=== PATIENT | male | born 1965 | race Two or more races ===

== ENCOUNTER 2018-06-11 11:00 | Emergency (ER) | payer MEDICAID ==
[~2018-06-11] VITALS: Ht 177.8 cm; Wt 99.8 kg
[2018-06-11 11:18] VITALS: BP_SYST 142
[2018-06-11] MEDS ORDERED: LIDOCAINE 2%, 20 ML MDV INJ ONE (11:30)
[2018-06-11] MEDS ORDERED: DIPH-TET-PERTUS Vaccine 0.5 ML VIAL (ADACEL) I.M. ONE (12:00)
[2018-06-11] MEDS ORDERED: BACITRACIN 1 GM OINT TP ONE ×2 (12:22→18:45)
[2018-06-11 12:23] VITALS: BP_SYST 138
== END 2018-06-11 12:23 | disposition home or self-care (01) ==
LOC: SED 11:00
DX: S61.411A Laceration without foreign body of right hand, initial encounter (principal); W26.0XXA Contact with knife, initial encounter; Y93.89 Activity, other specified; Y92.89 Other specified places as the place of occurrence of the external cause; Y99.8 Other external cause status
CPT/HCPCS: 12001; 99283; J2001; 90715

== ENCOUNTER 2021-05-15 18:14 | Emergency (ER) | payer MEDICAID ==
[~2021-05-15] VITALS: Ht 177.8 cm; Wt 104.3 kg
[2021-05-15 18:18] VITALS: BP_SYST 160
[2021-05-15 18:41] LABS: BILIRUBIN,URINE NEGATIVE (NEGATIVE); BLOOD, URINE 1+ (NEGATIVE); COLOR,URINE YELLOW (YELLOW); GLUCOSE,URINE NEGATIVE (NEGATIVE); KETONES,URINE TRACE (NEGATIVE); LEUKOCYTE ESTERASE ,URINE 1+ (NEGATIVE); NITRITE, URINE NEGATIVE (NEGATIVE); PROTEIN URINE 2+ (NEGATIVE)
[2021-05-15 18:43] LABS: CLARITY/URINE HAZY (CLEAR)
[2021-05-15 18:52] LABS: BACTERIA,URINE MANY /HPF (None Seen); WBC,URINE 20-50 /HPF (0-3)
[2021-05-15 18:53] LABS: CALCIUM OXALATE CRYSTALS,UR None Seen /HPF (None Seen); CALCIUM PHOSPHATE CRYSTALS,UR None Seen /HPF (None Seen); COARSE GRANULAR CASTS,URINE None Seen /LPF (None Seen); FINE GRANULAR CASTS,URINE None Seen /LPF (None Seen); HYALINE CASTS, URINE None Seen /LPF (None Seen); MUCUS,URINE 3+ /LPF (None Seen); OTHER CASTS, URINE None Seen /LPF (None Seen); OTHER CRYSTALS,URINE None Seen /HPF (None Seen); TRICHOMONAS,URINE None Seen /HPF (None Seen); TRIPLE PHOSPHATE CRYSTAL,UR None Seen /HPF (None Seen); URIC ACID CRYSTALS,URINE None Seen /HPF (None Seen); URINE AMORPHOUS PHOSPHATES None Seen /HPF (None Seen); URINE AMORPHOUS URATE None Seen /HPF (None Seen); WAXY CASTS,URINE None Seen /LPF (None Seen); YEAST,URINE None Seen /HPF (None Seen)
[2021-05-15] MEDS ORDERED: cefTRIAXone 1 GM VIAL IM ONE (19:15)
[2021-05-15] MEDS ORDERED: TRAM50TA2 PO (19:25)
[2021-05-15] MEDS ORDERED: IBUP-1969 PO (19:25)
[2021-05-15] MEDS ORDERED: CEPH250C PO (19:25)
[2021-05-15] MEDS ORDERED: AZITHROMYCIN 250 MG TABLET PO ONE (19:30)
[2021-05-15 20:30] VITALS: BP_SYST 148
[2021-05-17 20:06] LABS: CHLAMYDIA TRACHOMATIS NAA Negative (Negative); NEISSERIA GONORRHOEAE NAA Negative (Negative)
== END 2021-05-15 20:30 | disposition home or self-care (01) ==
LOC: SED 18:14
DX: N45.1 Epididymitis (principal); N39.0 Urinary tract infection, site not specified; Z79.899 Other long term (current) drug therapy
CPT/HCPCS: 76870; 81000; 87086; 87491; 87591; 96372; 99284; J0696; Q0144

== ENCOUNTER 2021-07-01 20:25 | Emergency (ER) | payer MEDICAID ==
[~2021-07-01] VITALS: Ht 177.8 cm; Wt 108.9 kg
[~2021-07-01 20:25] MED LIST: CEPH250C PO; IBUP-1969 PO; TRAM50TA2 PO
[2021-07-01 20:30] VITALS: BP_SYST 142
--- NOTE | 2021-07-01 20:30 | NUR ---
Patient triaged and placed in waiting room. VSS and patient appears in no acute distress at this time. Accompanied by , awaiting available bed, and MD notified of need for MSE.
--- NOTE | 2021-07-01 21:04 | NUR ---
PER ADMITTING PT LEFT .
== END 2021-07-01 21:04 | disposition left against medical advice (07) ==
LOC: SED 20:25
DX: R10.9 Unspecified abdominal pain (principal); Z53.21 Procedure and treatment not carried out due to patient leaving prior to being seen by health care provider

== ENCOUNTER 2022-01-27 20:33 | Emergency (ER) | payer MEDICAID ==
[~2022-01-27] VITALS: Ht 175.3 cm; Wt 104.3 kg
[2022-01-27 21:04] VITALS: BP_SYST 168
--- NOTE | 2022-01-27 21:12 | NUR ---
Patient triaged and placed in waiting room. VS checked and patient appears in no acute distress at this time. Accompanied by family, awaiting available bed, and MD notified of need for MSE.
--- NOTE | 2022-01-27 23:56 | NUR ---
Patient to ER bed 03 to gown for evaluation. Side rails up. Report given to SAW Valencia
--- NOTE | 2022-01-28 01:09 | NUR ---
TOBY Vaughn at bedside examining patient.
[2022-01-28] MEDS ORDERED: OXYCODONE/ACETAMINOPHEN 5-325 TABLET PO ONE (01:15)
[2022-01-28] MEDS ORDERED: IBUP-1969 PO (01:22)
[2022-01-28] MEDS ORDERED: HYDR-3917 PO (01:22)
--- NOTE | 2022-01-28 01:31 | NUR ---
VOLAR splint applied to LEFT ARM. RADIAL pulse noted. Capillary refill <3 seconds. Patient has ability to move non-splinted digits. Has sensation present to affected site. Skin color within normal limits. Applied for pain management control.
[2022-01-28 05:41] VITALS: BP_SYST 143
== END 2022-01-28 05:00 | disposition home or self-care (01) ==
LOC: SED 20:33
DX: S22.32XA Fracture of one rib, left side, initial encounter for closed fracture (principal); S52.612A Displaced fracture of left ulna styloid process, initial encounter for closed fracture; S40.012A Contusion of left shoulder, initial encounter; S50.12XA Contusion of left forearm, initial encounter; Z79.899 Other long term (current) drug therapy; V98.8XXA Other specified transport accidents, initial encounter; Y93.89 Activity, other specified; Y92.89 Other specified places as the place of occurrence of the external cause; Y99.8 Other external cause status
CPT/HCPCS: 71045; 71100; 99284

== ENCOUNTER 2022-05-17 14:21 | Emergency (ER) | payer MEDICAID ==
[~2022-05-17] VITALS: Ht 177.8 cm; Wt 99.8 kg
[~2022-05-17 14:21] MED LIST changes: +HYDR-3917 PO
[2022-05-17 14:25] VITALS: BP_SYST 128
--- NOTE | 2022-05-17 14:45 | NUR ---
Patient to ER bed 2 to gown for evaluation. Side rails up. Report given to SAW CALDWELL.
[2022-05-17] MEDS ORDERED: KETOROLAC TROMETHAMINE 60 MG/2 ML VIAL IM ONE (15:00)
[2022-05-17 15:02] LABS: BILIRUBIN,URINE NEGATIVE (NEGATIVE); BLOOD, URINE 3+ (NEGATIVE); COLOR,URINE YELLOW (YELLOW); GLUCOSE,URINE NEGATIVE (NEGATIVE); KETONES,URINE NEGATIVE (NEGATIVE); LEUKOCYTE ESTERASE ,URINE NEGATIVE (NEGATIVE); NITRITE, URINE NEGATIVE (NEGATIVE); PROTEIN URINE 1+ (NEGATIVE); UROBILINOGEN,URINE 0.2 (0.2-1.0)
--- NOTE | 2022-05-17 15:04 | NUR ---
Patient transported to radiology via AMBULATION, accompanied by STAFF.
[2022-05-17 15:07] LABS: CLARITY/URINE HAZY (CLEAR)
[2022-05-17 15:08] LABS: BACTERIA,URINE FEW /HPF (None Seen); MUCUS,URINE 1+ /LPF (None Seen); WBC,URINE 0-3 /HPF (0-3)
[2022-05-17 15:39] LABS: BASOPHILS % (AUTO) 0.5 % (0.0-2.0); EOSINOPHILS # (AUTO) 0.2 K/uL (0.0-0.4); EOSINOPHILS % (AUTO) 2.9 % (0.0-4.0); HEMATOCRIT 40.2 % (36-54); HEMOGLOBIN 13.6 g/dL (14.0-18.0); LYMPHOCYTES # (AUTO) 1.4 K/uL (1.0-5.5); MEAN CORPUSCULAR HEMOGLOBIN 32 pg (27-31); MEAN CORPUSCULAR HGB CONC 34 % (32-36); MEAN CORPUSCULAR VOLUME 95 fL (79.0-98.0); MONOCYTES # (AUTO) 0.5 K/uL (0.0-1.0); MONOCYTES % (AUTO) 9.8 % (1.7-9.3); NEUTROPHILS # (AUTO) 3.4 K/uL (1.8-7.7); NEUTROPHILS % (AUTO) 61.8 % (40.0-70.0); PLATELET COUNT (AUTO) 184 K/uL (130-430); RED BLOOD CELL COUNT(AUTO) 4.25 MIL/uL (4.2-6.2); RED CELL DISTRIBUTION WIDTH 13.4 % (9.0-15.0); WHITE BLOOD COUNT (AUTO) 5.5 K/uL (4.8-10.8)
[2022-05-17 15:49] LABS: ANION GAP 5 (5-15); CALCIUM 8.4 mg/dL (8.4-11.0); CHLORIDE 104 mmol/L (98-107); CREATININE 1.01 mg/dL (0.55-1.30); GLUCOSE 125 mg/dL (70-99); POTASSIUM 3.4 mmol/L (3.5-5.1); SODIUM SERUM 139 mmol/L (136-145); UREA NITROGEN, BLOOD 14 mg/dL (8-21)
[2022-05-17 15:50] LABS: GFR AFRICAN AMERICAN 99 mL/min (>90)
[2022-05-17 15:54] LABS: ALANINE AMINOTRANSFERASE 33 U/L (12-78); ALBUMIN 3.6 g/dL (3.4-4.8); AMYLASE 33 U/L (0-100); ASPARTATE AMINOTRANSFERASE 27 U/L (10-37); LIPASE 72 U/L (73-393); TOTAL BILIRUBIN 0.5 mg/dL (0.0-1.0)
[2022-05-17 15:55] LABS: C-REACTIVE PROTEIN QUANT < 0.2 mg/dL (0-0.5)
--- NOTE | 2022-05-17 16:30 | NUR ---
MD SPOKE WITH PT REGARDING 9 MM KIDNEY STONE. RN PREPARE FOR DC HOME
[2022-05-17] MEDS ORDERED: TRAM50TA2 PO (16:31)
[2022-05-17] MEDS ORDERED: IBUP-1971 PO (16:31)
[2022-05-17 16:37] VITALS: BP_SYST 132
--- NOTE | 2022-05-17 16:42 | NUR ---
Patient given written and verbal discharge instructions and verbalizes understanding. ER MD discussed with patient the results and treatment provided. Patient in stable condition. ID arm band removed. Rx of TRAMADOL given. Patient educated on pain management and to follow up with PMD. Pain Scale 0/10. Opportunity for questions provided and answered. Medication side effect fact sheet provided.
== END 2022-05-17 16:37 | disposition home or self-care (01) ==
LOC: SED 14:21
DX: N23 Unspecified renal colic (principal); R11.0 Nausea; Z79.899 Other long term (current) drug therapy
CPT/HCPCS: 99284; 74176; 80053; 81000; 82150; 83690; 85025; 86140; 36415; 76376; 96372; 83605; J1885

== ENCOUNTER 2022-07-17 11:21 | Emergency (ER) | payer MEDICAID ==
[~2022-07-17] VITALS: Ht 160 cm; Wt 52.2 kg
[~2022-07-17 11:21] MED LIST changes: +IBUP-1971 PO
[2022-07-17 11:23] VITALS: BP_SYST 144
--- NOTE | 2022-07-17 11:30 | NUR ---
Patient to ER bed 8 to gown for evaluation. Side rails up. Report given to Darien SPRING.
--- NOTE | 2022-07-17 11:53 | NUR ---
First contact. Pt over the phone states he has right sided pain to the scrotum. Pain is 10/10.
--- NOTE | 2022-07-17 11:55 | NUR ---
ER at bedside examining patient.
[2022-07-17] MEDS ORDERED: MORPHINE SULFATE 10 MG/ML VIAL IM ONE (12:00)
[2022-07-17] MEDS ORDERED: ONDANSETRON 4 MG ODT TAB PO ONE (12:00)
--- NOTE | 2022-07-17 12:02 | NUR ---
TAKEN TO RADIOLOGY VIA WHEELCHAIR
--- NOTE | 2022-07-17 12:43 | NUR ---
RETURNED FROM RADIOLOGY AND BACK TO BED #8
[2022-07-17] MEDS ORDERED: IBUP-1971 PO (14:37)
[2022-07-17 15:34] VITALS: BP_SYST 141
--- NOTE | 2022-07-17 15:34 | NUR ---
Patient given written and verbal discharge instructions and verbalizes understanding. ER MD discussed with patient the results and treatment provided. Patient in stable condition. ID arm band removed. IV catheter removed intact and dressing applied, no active bleeding. Rx of Ibuprofen given. Patient educated on pain management and to follow up with PMD. Pain Scale 0/10. Opportunity for questions provided and answered. Medication side effect fact sheet provided.
[2022-07-17 16:04] LABS: BILIRUBIN,URINE NEGATIVE (NEGATIVE); BLOOD, URINE 2+ (NEGATIVE); CLARITY/URINE CLEAR (CLEAR); COLOR,URINE YELLOW (YELLOW); GLUCOSE,URINE NEGATIVE (NEGATIVE); KETONES,URINE NEGATIVE (NEGATIVE); LEUKOCYTE ESTERASE ,URINE NEGATIVE (NEGATIVE); NITRITE, URINE NEGATIVE (NEGATIVE); PH,URINE 7.5 (5.0-8.0); PROTEIN URINE NEGATIVE (NEGATIVE); UROBILINOGEN,URINE 0.2 (0.2-1.0)
[2022-07-17 16:44] LABS: BACTERIA,URINE None Seen /HPF (None Seen); MUCUS,URINE 1+ /LPF (None Seen); RBC,URINE 20-50 /HPF (0-3); URINE AMORPHOUS URATE 1+ /HPF (None Seen); WBC,URINE NONE SEEN /HPF (0-3)
== END 2022-07-17 15:34 | disposition home or self-care (01) ==
LOC: SED 11:21
DX: N50.811 Right testicular pain (principal); Z79.899 Other long term (current) drug therapy
CPT/HCPCS: 99284; 96374; 81000; 76870; Q0162; J2270

== ENCOUNTER 2022-11-14 09:53 | Inpatient (IN) | payer OTHER, MEDICAID ==
[~2022-11-14] VITALS: Ht 175.3 cm; Wt 76.2 kg
[2022-11-14 10:33] VITALS: BP_SYST 142
[2022-11-14] MEDS ORDERED: NACL 0.9% 1,000 ML IV ONE (10:45)
[2022-11-14] MEDS ORDERED: KETOROLAC TROMETHAMINE 30 MG VIAL IVP ONE (10:45)
[2022-11-14 11:46] LABS: BASOPHILS % (AUTO) 0.6 % (0.0-2.0); EOSINOPHILS # (AUTO) 0.2 K/uL (0.0-0.4); EOSINOPHILS % (AUTO) 3.8 % (0.0-4.0); HEMATOCRIT 46.6 % (36-54); HEMOGLOBIN 15.6 g/dL (14.0-18.0); LYMPHOCYTES # (AUTO) 1.5 K/uL (1.0-5.5); LYMPHOCYTES % (AUTO) 24.2 % (20.5-51.5); MEAN CORPUSCULAR HEMOGLOBIN 32 pg (27-31); MEAN CORPUSCULAR HGB CONC 33 % (32-36); MEAN CORPUSCULAR VOLUME 96 fL (79.0-98.0); MONOCYTES # (AUTO) 0.4 K/uL (0.0-1.0); MONOCYTES % (AUTO) 6.8 % (1.7-9.3); NEUTROPHILS % (AUTO) 64.6 % (40.0-70.0); PLATELET COUNT (AUTO) 250 K/uL (130-430); RED BLOOD CELL COUNT(AUTO) 4.87 MIL/uL (4.2-6.2); RED CELL DISTRIBUTION WIDTH 13.6 % (9.0-15.0); WHITE BLOOD COUNT (AUTO) 6.3 K/uL (4.8-10.8)
[2022-11-14 11:51] LABS: BILIRUBIN,URINE NEGATIVE (NEGATIVE); BLOOD, URINE 2+ (NEGATIVE); CLARITY/URINE CLEAR (CLEAR); COLOR,URINE YELLOW (YELLOW); GLUCOSE,URINE NEGATIVE (NEGATIVE); KETONES,URINE NEGATIVE (NEGATIVE); LEUKOCYTE ESTERASE ,URINE NEGATIVE (NEGATIVE); NITRITE, URINE NEGATIVE (NEGATIVE); PROTEIN URINE 1+ (NEGATIVE); UROBILINOGEN,URINE 0.2 (0.2-1.0)
[2022-11-14 11:58] LABS: CREATININE 0.78 mg/dL (0.55-1.30)
[2022-11-14 12:17] LABS: ALBUMIN 4.5 g/dL (3.4-4.8); TOTAL BILIRUBIN 0.7 mg/dL (0.0-1.0)
[2022-11-14] MEDS ORDERED: cefTRIAXone 1 GM IVPB PREMIX 50 ML IV ONE (12:30)
[2022-11-14 12:32] LABS: BACTERIA,URINE None Seen /HPF (None Seen); WBC,URINE 0-3 /HPF (0-3)
[2022-11-14 12:33] LABS: MUCUS,URINE 1+ /LPF (None Seen)
[2022-11-14] MEDS ORDERED: MORPHINE 4 MG INJ. 4 MG/ML VIAL IVP ONE (13:45)
[2022-11-14] MEDS ORDERED: D5/0.45 NS 1,000 ML IV ONE (14:00)
[2022-11-14] MEDS ORDERED: TAMS-11 PO (19:31)
[2022-11-15] VITALS: BP_SYST 141
[2022-11-15 04:00] VITALS: BP_SYST 139
[2022-11-15] MEDS ORDERED: IBUPROFEN 600 MG TABLET PO PRN (11:30)
[2022-11-15] MEDS ORDERED: TAMS-11 PO (12:55)
[2022-11-15] MEDS ORDERED: IBUP-1971 PO (12:55)
[2022-11-15] MEDS ORDERED: HYDR-3917 PO (12:55)
[2022-11-15 14:15] VITALS: BP_SYST 134
[2022-11-15 14:32] VITALS: BP_SYST 137
== END 2022-11-15 15:00 | disposition home or self-care (01) | DRG 690 ==
LOC: SED 09:53 → SMU 13:52
PROVIDERS: ADMIT Preventive Medicine Preventive Medicine/Occupational Environmental Medicine; ATTEND Preventive Medicine Preventive Medicine/Occupational Environmental Medicine
DX: N10 Acute pyelonephritis (principal); K80.20 Calculus of gallbladder without cholecystitis without obstruction; N13.6 Pyonephrosis; N20.0 Calculus of kidney; K57.30 Diverticulosis of large intestine without perforation or abscess without bleeding; K40.90 Unilateral inguinal hernia, without obstruction or gangrene, not specified as recurrent; R31.9 Hematuria, unspecified; Z20.822 Contact with and (suspected) exposure to COVID-19; Z87.442 Personal history of urinary calculi; Z79.1 Long term (current) use of non-steroidal anti-inflammatories (NSAID); Z79.891 Long term (current) use of opiate analgesic; Z79.899 Other long term (current) drug therapy
CPT/HCPCS: 36415; 76376; 80053; 81000; 83605; 85025; 87040; 99285; J0696; J1885; J2270; J7030

== ENCOUNTER 2022-11-18 19:20 | Emergency (ER) | payer OTHER, MEDICAID ==
[~2022-11-18] VITALS: Ht 177.8 cm; Wt 104.3 kg
[~2022-11-18 19:20] MED LIST changes: -IBUP-1969 PO; +TAMS-11 PO; -TRAM50TA2 PO
--- NOTE | 2022-11-18 20:01 | NUR ---
Placed in room HW1. Placed on call taker. Pt to gown for exam. Side rails up. Report given to SAW Henriquez.
--- NOTE | 2022-11-18 20:01 | NUR ---
Patient triaged and placed in waiting room. VSS and patient appears in no acute distress at this time. Accompanied by , awaiting available bed, and MD Reynolds notified of need for MSE.
--- NOTE | 2022-11-18 20:10 | NUR ---
PATIENT BROUGHT IN COMPLAINING OF SEVERE PAIN TO RIGHT TESTICLE STARTING AT 1400 TODAY AFTER BEING DISCHARGED FROM [facility] FOR A LITHOTRIPSY. PAIN 08/18.
--- NOTE | 2022-11-18 20:14 | NUR ---
# 20 gauge angiocath placed to LT HAND. Use of asceptic technique. Opsite placed over site. Blood return noted. Blood for lab drawn from site. Flushed with 10 cc of normal saline. No evidence of infiltration noted. Patient tolerated well.
[2022-11-18] MEDS ORDERED: ONDANSETRON HCL 4 MG/2 ML VIAL IVP ONE (20:15)
[2022-11-18] MEDS ORDERED: NACL 0.9% 1,000 ML IV ONE (20:15)
[2022-11-18] MEDS ORDERED: KETOROLAC TROMETHAMINE 30 MG VIAL IVP ONE (20:15)
[2022-11-18] MEDS ORDERED: MORPHINE 4 MG INJ. 4 MG/ML VIAL IVP ONE ×2 (20:15→22:30)
--- NOTE | 2022-11-18 20:15 | NUR ---
ER at bedside examining patient.
[2022-11-18 20:25] LABS: BILIRUBIN,URINE NEGATIVE (NEGATIVE); BLOOD, URINE 3+ (NEGATIVE); CLARITY/URINE CLOUDY (CLEAR); COLOR,URINE YELLOW (YELLOW); GLUCOSE,URINE NEGATIVE (NEGATIVE); KETONES,URINE NEGATIVE (NEGATIVE); LEUKOCYTE ESTERASE ,URINE NEGATIVE (NEGATIVE); NITRITE, URINE NEGATIVE (NEGATIVE); PROTEIN URINE 1+ (NEGATIVE); UROBILINOGEN,URINE 0.2 (0.2-1.0)
[2022-11-18 20:25] LABS: BASOPHILS % (AUTO) 0.1 % (0.0-2.0); HEMATOCRIT 46.4 % (36-54); HEMOGLOBIN 15.5 g/dL (14.0-18.0); LYMPHOCYTES # (AUTO) 0.7 K/uL (1.0-5.5); LYMPHOCYTES % (AUTO) 5.4 % (20.5-51.5); MEAN CORPUSCULAR HEMOGLOBIN 32 pg (27-31); MEAN CORPUSCULAR HGB CONC 33 % (32-36); MEAN CORPUSCULAR VOLUME 96 fL (79.0-98.0); MONOCYTES # (AUTO) 0.2 K/uL (0.0-1.0); MONOCYTES % (AUTO) 1.9 % (1.7-9.3); NEUTROPHILS # (AUTO) 11.7 K/uL (1.8-7.7); NEUTROPHILS % (AUTO) 92.6 % (40.0-70.0); PLATELET COUNT (AUTO) 251 K/uL (130-430); RED BLOOD CELL COUNT(AUTO) 4.82 MIL/uL (4.2-6.2); RED CELL DISTRIBUTION WIDTH 13.2 % (9.0-15.0); WHITE BLOOD COUNT (AUTO) 12.6 K/uL (4.8-10.8)
[2022-11-18 20:34] LABS: CALCIUM 8.9 mg/dL (8.4-11.0); CREATININE 1.27 mg/dL (0.55-1.30)
[2022-11-18 20:46] LABS: ALBUMIN 4.5 g/dL (3.4-4.8); TOTAL BILIRUBIN 0.4 mg/dL (0.0-1.0)
[2022-11-18 22:15] LABS: BACTERIA,URINE FEW /HPF (None Seen); MUCUS,URINE 2+ /LPF (None Seen); RBC,URINE >100 /HPF (0-3)
[2022-11-18 22:50] VITALS: BP_SYST 132
--- NOTE | 2022-11-18 22:50 | NUR ---
Patient given written and verbal discharge instructions and verbalizes understanding. ER MD discussed with patient the results and treatment provided. Patient in stable condition. ID arm band removed. IV catheter removed intact and dressing applied, no active bleeding. NO RX GIVEN. Patient educated on pain management and to follow up with PMD. Pain Scale 0/10 Opportunity for questions provided and answered.
== END 2022-11-18 22:50 | disposition home or self-care (01) ==
LOC: SED 19:20
DX: N20.0 Calculus of kidney (principal); N50.811 Right testicular pain; R10.9 Unspecified abdominal pain; R11.0 Nausea; Z87.442 Personal history of urinary calculi; Z79.899 Other long term (current) drug therapy
CPT/HCPCS: 99285; 74176; 96374; 96375; 96361; 80053; 81000; 85025; 36415; 76376; 96376; J1885; J2405; J2270; J7030

== ENCOUNTER 2024-01-27 15:50 | Inpatient (IN) | payer MEDICARE, MEDICAID ==
[~2024-01-27] VITALS: Ht 180.3 cm; Wt 108.9 kg
[2024-01-27 15:50] VITALS: BP_SYST 114; PULSE 109; RESP 18; TEMP 97.3; O2SAT 96
[2024-01-27] MEDS ORDERED: HYDR-3927 PO (18:27)
[2024-01-27] MEDS ORDERED: IBUP-1971 PO (18:30)
[2024-01-27] MEDS ORDERED: CYCL10TA24 PO (18:30)
[2024-01-27] MEDS: KETOROLAC TROMETHAMINE 60 MG/2 ML VIAL IM ONE (18:40)
[2024-01-27] MEDS: METHYLPREDNISOLONE SOD SUCC 40 MG/ML VIAL INJ ONE (18:42)
[2024-01-27] MEDS: ONDANSETRON 4 MG ODT TAB PO ONE (18:43)
[2024-01-27] MEDS: MORPHINE SULFATE 10 MG/ML VIAL IM ONE (18:45)
[2024-01-27] MEDS ORDERED: HYDROmorphone 1 MG/ML INJ. CARTRIDGE IVP PRN (20:15)
[2024-01-27 21:22] LABS: BASOPHILS % (AUTO) 0.3 % (0.0-2.0); EOSINOPHILS % (AUTO) 0.1 % (0.0-4.0); HEMOGLOBIN 15.1 g/dL (14.0-18.0); LYMPHOCYTES % (AUTO) 8.5 % (20.5-51.5); MEAN CORPUSCULAR HEMOGLOBIN 33 pg (27-31); MEAN CORPUSCULAR HGB CONC 34 % (32-36); MEAN CORPUSCULAR VOLUME 97 fL (79.0-98.0); MONOCYTES # (AUTO) 0.5 K/uL (0.0-1.0); MONOCYTES % (AUTO) 4.4 % (1.7-9.3); NEUTROPHILS # (AUTO) 10.6 K/uL (1.8-7.7); NEUTROPHILS % (AUTO) 86.7 % (40.0-70.0); PLATELET COUNT (AUTO) 276 K/uL (130-430); RED BLOOD CELL COUNT(AUTO) 4.54 MIL/uL (4.2-6.2); RED CELL DISTRIBUTION WIDTH 14.5 % (9.0-15.0); WHITE BLOOD COUNT (AUTO) 12.3 K/uL (4.8-10.8)
[2024-01-27 21:39] LABS: ALBUMIN 3.8 g/dL (3.4-4.8); CALCIUM 8.4 mg/dL (8.4-11.0); CREATININE 1.05 mg/dL (0.55-1.30); POTASSIUM 4.5 mmol/L (3.5-5.1); TOTAL BILIRUBIN 0.4 mg/dL (0.0-1.0); TOTAL PROTEIN, SERUM 7.5 g/dL (6.4-8.3)
[2024-01-27 23:15] VITALS: BP_SYST 140; PULSE 85; RESP 20; TEMP 98; O2SAT 99
[2024-01-28 04:00] VITALS: BP_SYST 139; PULSE 87; RESP 20; TEMP 98.3; O2SAT 99
[2024-01-28 08:00] VITALS: O2SAT 99
[2024-01-28 08:08] VITALS: BP_SYST 133; PULSE 71; RESP 18; TEMP 98; O2SAT 100
[2024-01-28] MEDS: HYDROcodone/ACETAMIN 10-325 MG TAB PO PRN (09:25)
[2024-01-28] MEDS ORDERED: NALOXONE HCL 0.4 MG/ML AMP (NARCAN) IVP PRN ×2 (09:45)
[2024-01-28] MEDS ORDERED: CYCLOBENZAPRINE HCL 10 MG TABLET (FLEXERIL) PO SCH (09:45)
[2024-01-28] MEDS ORDERED: HYDROcodone/ACETAMIN 10-325 MG TAB PO PRN (09:45)
[2024-01-28] MEDS: CYCLOBENZAPRINE HCL 10 MG TABLET (FLEXERIL) PO ONE (09:45)
[2024-01-28] MEDS ORDERED: HYDROcodone/ACETAMIN 5-325 MG TAB (NORCO/ VICODIN) PO PRN (09:45)
[2024-01-28] MEDS: TAMSULOSIN HCL 0.4 MG CAP PO SCH (13:58)
[2024-01-28] MEDS: CYCLOBENZAPRINE HCL 10 MG TABLET (FLEXERIL) PO SCH (14:10)
[2024-01-28] MEDS ORDERED: IBUP800T54 PO (14:21)
[2024-01-28] MEDS ORDERED: CYCL10TA24 PO (14:21)
[2024-01-28] MEDS ORDERED: HYDR-3917 PO (14:21)
[2024-01-28] MEDS ORDERED: LISI30TA36 PO (14:23)
[2024-01-28 20:00] VITALS: BP_SYST 138; PULSE 79; RESP 20; TEMP 98; O2SAT 98; O2SAT 99
[2024-01-29] VITALS: BP_SYST 141; PULSE 80; RESP 18; TEMP 97.7; O2SAT 97
[2024-01-29 04:00] VITALS: BP_SYST 137; PULSE 78; RESP 20; TEMP 98; O2SAT 99
[2024-01-29 07:05] LABS: BASOPHILS % (AUTO) 0.1 % (0.0-2.0); EOSINOPHILS # (AUTO) 0.1 K/uL (0.0-0.4); EOSINOPHILS % (AUTO) 0.6 % (0.0-4.0); HEMATOCRIT 43.7 % (36-54); HEMOGLOBIN 15.2 g/dL (14.0-18.0); LYMPHOCYTES # (AUTO) 2.8 K/uL (1.0-5.5); LYMPHOCYTES % (AUTO) 25.4 % (20.5-51.5); MEAN CORPUSCULAR HEMOGLOBIN 34 pg (27-31); MEAN CORPUSCULAR HGB CONC 35 % (32-36); MEAN CORPUSCULAR VOLUME 98 fL (79.0-98.0); MONOCYTES # (AUTO) 0.8 K/uL (0.0-1.0); MONOCYTES % (AUTO) 7.3 % (1.7-9.3); NEUTROPHILS # (AUTO) 7.3 K/uL (1.8-7.7); NEUTROPHILS % (AUTO) 66.6 % (40.0-70.0); PLATELET COUNT (AUTO) 252 K/uL (130-430); RED BLOOD CELL COUNT(AUTO) 4.48 MIL/uL (4.2-6.2); RED CELL DISTRIBUTION WIDTH 14.6 % (9.0-15.0); WHITE BLOOD COUNT (AUTO) 10.9 K/uL (4.8-10.8)
[2024-01-29 07:11] LABS: CALCIUM 8.4 mg/dL (8.4-11.0); CREATININE 0.87 mg/dL (0.55-1.30); POTASSIUM 3.9 mmol/L (3.5-5.1)
[2024-01-29 07:45] VITALS: BP_SYST 131; PULSE 67; RESP 18; TEMP 96.2; O2SAT 97
[2024-01-29] MEDS: TAMSULOSIN HCL 0.4 MG CAP PO SCH (08:15)
[2024-01-29 11:15] VITALS: BP_SYST 131; PULSE 67; RESP 18; TEMP 96.2; O2SAT 96
[2024-01-29] MEDS ORDERED: MELO-89 PO (11:47)
[2024-01-29] MEDS ORDERED: HYDR-3917 PO (11:47)
[2024-01-29] MEDS ORDERED: DEC1 PO (12:30)
[2024-01-29 12:59] VITALS: BP_SYST 136; PULSE 81; RESP 16; TEMP 96.9; O2SAT 96
== END 2024-01-29 14:25 | disposition home health service (06) | DRG 552 ==
LOC: SED 15:50 → SMU 20:10
PROVIDERS: ADMIT Specialist; ATTEND Specialist
DX: M54.9 Dorsalgia, unspecified (principal); Z79.891 Long term (current) use of opiate analgesic; Z79.899 Other long term (current) drug therapy; Z79.1 Long term (current) use of non-steroidal anti-inflammatories (NSAID)
CPT/HCPCS: 36415; 72131; 72202-TC; 80048; 80053; 85025; 96372; 97110-GP; 97116-GP; 97530-GP; 99285; J1030; J1885; J2270; Q0162

== ENCOUNTER 2024-07-08 10:23 | Inpatient (IN) | payer OTHER, MEDICAID ==
[2024-07-08] VITALS (10 sets, daily range): BP systolic 122–162; PULSE 84–147; RESP 16–25; TEMP 97.1–98.2; O2SAT 95–98
[~2024-07-08] VITALS: Ht 177.8 cm; Wt 104.3 kg
[~2024-07-08 10:23] MED LIST changes: -CEPH250C PO; +CYCL10TA24 PO; +DEC1 PO; -IBUP-1971 PO; +LISI30TA36 PO; +MELO-89 PO; -TAMS-11 PO
[2024-07-08] MEDS: ONDANSETRON HCL 4 MG/2 ML VIAL IVP ONE (11:14)
[2024-07-08] MEDS: MORPHINE 4 MG INJ. 4 MG/ML VIAL IVP ONE (11:14)
[2024-07-08] MEDS: dilTIAZem HCL IVP 5 MG/ML VIAL IVP ONE ×2 (11:15→13:41)
[2024-07-08] MEDS: ASPIRIN 81 MG TAB.CHEW PO ONE (11:15)
[2024-07-08 11:16] LABS: BASOPHILS % (AUTO) 0.4 % (0.0-2.0); EOSINOPHILS # (AUTO) 0.1 K/uL (0.0-0.4); HEMATOCRIT 44.9 % (36-54); HEMOGLOBIN 14.9 g/dL (14.0-18.0); LYMPHOCYTES # (AUTO) 1.9 K/uL (1.0-5.5); LYMPHOCYTES % (AUTO) 19.6 % (20.5-51.5); MEAN CORPUSCULAR HEMOGLOBIN 33 pg (27-31); MEAN CORPUSCULAR HGB CONC 33 % (32-36); MEAN CORPUSCULAR VOLUME 101 fL (79.0-98.0); MONOCYTES # (AUTO) 1.2 K/uL (0.0-1.0); MONOCYTES % (AUTO) 12.8 % (1.7-9.3); NEUTROPHILS # (AUTO) 6.4 K/uL (1.8-7.7); NEUTROPHILS % (AUTO) 66.2 % (40.0-70.0); PLATELET COUNT (AUTO) 261 K/uL (130-430); RED BLOOD CELL COUNT(AUTO) 4.46 MIL/uL (4.2-6.2); RED CELL DISTRIBUTION WIDTH 15.5 % (9.0-15.0); WHITE BLOOD COUNT (AUTO) 9.7 K/uL (4.8-10.8)
[2024-07-08 11:51] LABS: ANION GAP 12 (5-15); CALCIUM 8.8 mg/dL (8.4-11.0); CARBON DIOXIDE 24 mmol/L (23-29); CHLORIDE 102 mmol/L (98-107); CREATININE 0.95 mg/dL (0.55-1.30); GFR AFRICAN AMERICAN 105 mL/min (>90); GLUCOSE 101 mg/dL (74-106); POTASSIUM 4.4 mmol/L (3.5-5.1); SODIUM SERUM 138 mmol/L (136-145); UREA NITROGEN, BLOOD 12 mg/dL (8-21)
[2024-07-08 11:54] LABS: GFR NON AFRICAN-AMERICAN 87 mL/min (>90)
[2024-07-08 12:11] LABS: BARBITURATE, URINE NEGATIVE (NEG <=200); BENZODIAZEPINE, URINE NEGATIVE (NEG <=150); CANNABINOID, URINE NEGATIVE (NEG <=50); COCAINE, URINE NEGATIVE (NEG <=150); METHAMPHETAMINES SCREEN,URINE NEGATIVE (NEG <=500); OPIATE, URINE NEGATIVE (NEG <=100); PHENCYCLIDINE SCREEN,URINE NEGATIVE (NEG <=25); UR TRICYCLIC ANTIDEPRESSANTS NEGATIVE (NEG <=300); URINE AMPHETAMINE NEGATIVE (NEG <=500); URINE METHADONE NEGATIVE (NEG <=200); URINE OXYCODONE SCREEN NEGATIVE (NEG <=100)
[2024-07-08] MEDS: PANTOPRAZOLE SODIUM 40 MG/VIAL (PROTONIX) IVP ONE (12:16)
[2024-07-08] MEDS: NACL 0.9% 2,000 ML IV ONE (12:19)
[2024-07-08] MEDS: *HEPARIN PER PHARMACY XX ONE ×2 (13:15→17:49)
[2024-07-08 13:53] LABS: INR 1.1 (0.80-1.20); PROTHROMBIN TIME 11.2 SECS (9.5-12.5)
[2024-07-08] MEDS: HEPARIN SODIUM,PORCINE 5,000 UNITS/ML VIAL IVP ONE (14:36)
[2024-07-08] MEDS: DIGOXIN 0.5 MG/2 ML AMP IVP ONE (17:42)
[2024-07-08] MEDS ORDERED: HEPARIN SODIUM,PORCINE 3000 UNITS/0.6 ML BOLUS IVP PRN (17:45)
[2024-07-08] MEDS: METOPROLOL TARTRATE 25 MG TABLET PO SCH (20:39)
[2024-07-08] MEDS: HEPARIN 25,000 UNITS in 250 ML PREMIX IV PRN (20:42)
[2024-07-09] VITALS (25 sets, daily range): BP systolic 116–158; PULSE 94–127; RESP 18–24; TEMP 97.4–99.1; O2SAT 92–100
[2024-07-09] MEDS: DIGOXIN 0.5 MG/2 ML AMP IVP ONE ×2 (00:06→06:01)
[2024-07-09 04:01] LABS: BASOPHILS % (AUTO) 0.2 % (0.0-2.0); EOSINOPHILS # (AUTO) 0.1 K/uL (0.0-0.4); EOSINOPHILS % (AUTO) 1.4 % (0.0-4.0); HEMATOCRIT 41.4 % (36-54); HEMOGLOBIN 13.5 g/dL (14.0-18.0); LYMPHOCYTES # (AUTO) 1.8 K/uL (1.0-5.5); LYMPHOCYTES % (AUTO) 21.8 % (20.5-51.5); MEAN CORPUSCULAR HEMOGLOBIN 33 pg (27-31); MEAN CORPUSCULAR HGB CONC 33 % (32-36); MEAN CORPUSCULAR VOLUME 101 fL (79.0-98.0); MONOCYTES # (AUTO) 0.9 K/uL (0.0-1.0); MONOCYTES % (AUTO) 10.6 % (1.7-9.3); NEUTROPHILS # (AUTO) 5.5 K/uL (1.8-7.7); PLATELET COUNT (AUTO) 219 K/uL (130-430); RED CELL DISTRIBUTION WIDTH 15.1 % (9.0-15.0); WHITE BLOOD COUNT (AUTO) 8.3 K/uL (4.8-10.8)
[2024-07-09] MEDS: HEPARIN SODIUM,PORCINE 2000 UNITS/0.4 ML BOLUS IVP PRN (04:40)
[2024-07-09 11:21] LABS: CALCIUM 8.3 mg/dL (8.4-11.0); CREATININE 0.93 mg/dL (0.55-1.30); POTASSIUM 4.8 mmol/L (3.5-5.1)
[2024-07-09] MEDS: *LOVENOX 1MG/KG Q12H/PHARMACY XX ONE (13:00)
[2024-07-09] MEDS ORDERED: ONDANSETRON HCL 4 MG/2 ML VIAL IVP PRN (13:15)
[2024-07-09] MEDS ORDERED: HYDROcodone/ACETAMIN 10-325 MG TAB PO PRN (13:15)
[2024-07-09] MEDS ORDERED: ACETAMINOPHEN 325 MG TABLET PO PRN (13:15)
[2024-07-09] MEDS ORDERED: LORazepam 2 MG/ML VIAL IVP PRN (13:15)
[2024-07-09] MEDS ORDERED: NALOXONE HCL 0.4 MG/ML AMP (NARCAN) IVP PRN ×3 (13:15)
[2024-07-09] MEDS ORDERED: HYDROcodone/ACETAMIN 5-325 MG TAB (NORCO/ VICODIN) PO PRN (13:15)
[2024-07-09] MEDS: MELOXICAM 7.5 MG TABLET PO ONE (14:24)
[2024-07-09] MEDS: DEXAMETHASONE 1 MG TABLET (DECADRON) PO ONE (14:25)
[2024-07-09] MEDS: DIGOXIN 0.25 MG TABLET PO ONE (14:26)
[2024-07-09] MEDS: NORMAL SALINE 5 ML DISP.SYRIN IVF SCH (14:26)
[2024-07-09] MEDS: METOPROLOL TARTRATE 50 MG TABLET PO SCH (21:31)
[2024-07-09] MEDS: LISINOPRIL 10 MG TABLET (PRINIVIL) PO SCH (21:32)
[2024-07-09] MEDS: ENOXAPARIN SODIUM 100 MG/ML SYRINGE SUBCUT SCH (21:32)
[2024-07-10] VITALS (14 sets, daily range): BP systolic 111–139; PULSE 76–123; RESP 12–22; TEMP 97.3–99; O2SAT 94–99
[2024-07-10 06:12] LABS: BASOPHILS % (AUTO) 0.1 % (0.0-2.0); EOSINOPHILS % (AUTO) 0.5 % (0.0-4.0); HEMATOCRIT 44.2 % (36-54); HEMOGLOBIN 14.7 g/dL (14.0-18.0); LYMPHOCYTES # (AUTO) 1.5 K/uL (1.0-5.5); LYMPHOCYTES % (AUTO) 16.4 % (20.5-51.5); MEAN CORPUSCULAR HEMOGLOBIN 34 pg (27-31); MEAN CORPUSCULAR HGB CONC 33 % (32-36); MEAN CORPUSCULAR VOLUME 101 fL (79.0-98.0); MONOCYTES % (AUTO) 11.2 % (1.7-9.3); NEUTROPHILS # (AUTO) 6.5 K/uL (1.8-7.7); NEUTROPHILS % (AUTO) 71.8 % (40.0-70.0); PLATELET COUNT (AUTO) 280 K/uL (130-430); RED BLOOD CELL COUNT(AUTO) 4.37 MIL/uL (4.2-6.2); RED CELL DISTRIBUTION WIDTH 14.8 % (9.0-15.0); WHITE BLOOD COUNT (AUTO) 9.1 K/uL (4.8-10.8)
[2024-07-10 06:44] LABS: CALCIUM 8.8 mg/dL (8.4-11.0); CREATININE 0.76 mg/dL (0.55-1.30); POTASSIUM 4.7 mmol/L (3.5-5.1)
[2024-07-10] MEDS: MELOXICAM 7.5 MG TABLET PO SCH (08:05)
[2024-07-10] MEDS: DIGOXIN 0.25 MG TABLET PO SCH (08:06)
[2024-07-10] MEDS: DEXAMETHASONE 1 MG TABLET (DECADRON) PO SCH (08:06)
[2024-07-10] MEDS: SACUBITRIL/VALSARTAN 24 MG-26 MG 1 TABLET PO SCH (08:08)
[2024-07-11] VITALS (7 sets, daily range): BP systolic 102–118; PULSE 59–80; RESP 16–18; TEMP 97.3–98.2; O2SAT 96–98
[2024-07-11 07:26] LABS: BASOPHILS % (AUTO) 0.2 % (0.0-2.0); EOSINOPHILS # (AUTO) 0.1 K/uL (0.0-0.4); EOSINOPHILS % (AUTO) 0.9 % (0.0-4.0); HEMATOCRIT 44.9 % (36-54); HEMOGLOBIN 14.9 g/dL (14.0-18.0); LYMPHOCYTES # (AUTO) 2.1 K/uL (1.0-5.5); LYMPHOCYTES % (AUTO) 26.8 % (20.5-51.5); MEAN CORPUSCULAR HEMOGLOBIN 33 pg (27-31); MEAN CORPUSCULAR HGB CONC 33 % (32-36); MEAN CORPUSCULAR VOLUME 100 fL (79.0-98.0); MONOCYTES # (AUTO) 0.8 K/uL (0.0-1.0); MONOCYTES % (AUTO) 10.2 % (1.7-9.3); NEUTROPHILS # (AUTO) 4.8 K/uL (1.8-7.7); NEUTROPHILS % (AUTO) 61.9 % (40.0-70.0); PLATELET COUNT (AUTO) 304 K/uL (130-430); RED CELL DISTRIBUTION WIDTH 15.1 % (9.0-15.0); WHITE BLOOD COUNT (AUTO) 7.7 K/uL (4.8-10.8)
[2024-07-11 07:51] LABS: ALBUMIN 3.2 g/dL (3.4-4.8); CALCIUM 8.9 mg/dL (8.4-11.0); CREATININE 0.79 mg/dL (0.55-1.30); POTASSIUM 4.1 mmol/L (3.5-5.1); TOTAL BILIRUBIN 0.4 mg/dL (0.0-1.0); TOTAL PROTEIN, SERUM 7.7 g/dL (6.4-8.3)
[2024-07-11] MEDS: APIXABAN 2.5 MG TABLET PO ONE (11:31)
[2024-07-11] MEDS: METOPROLOL SUCCINATE 50 MG TAB.SR.24H (TOPROL XL) PO ONE (11:32)
[2024-07-12] VITALS: BP_SYST 125; PULSE 73; RESP 16; TEMP 98.6; O2SAT 98
[2024-07-12 06:00] VITALS: BP_SYST 125; PULSE 76; RESP 16; TEMP 98.4; O2SAT 98
[2024-07-12 06:36] LABS: BASOPHILS % (AUTO) 0.3 % (0.0-2.0); EOSINOPHILS # (AUTO) 0.1 K/uL (0.0-0.4); EOSINOPHILS % (AUTO) 0.8 % (0.0-4.0); HEMATOCRIT 45.4 % (36-54); HEMOGLOBIN 15.1 g/dL (14.0-18.0); LYMPHOCYTES # (AUTO) 2.2 K/uL (1.0-5.5); LYMPHOCYTES % (AUTO) 26.1 % (20.5-51.5); MEAN CORPUSCULAR HEMOGLOBIN 33 pg (27-31); MEAN CORPUSCULAR HGB CONC 33 % (32-36); MEAN CORPUSCULAR VOLUME 100 fL (79.0-98.0); MONOCYTES # (AUTO) 0.9 K/uL (0.0-1.0); MONOCYTES % (AUTO) 10.2 % (1.7-9.3); NEUTROPHILS # (AUTO) 5.3 K/uL (1.8-7.7); NEUTROPHILS % (AUTO) 62.6 % (40.0-70.0); PLATELET COUNT (AUTO) 318 K/uL (130-430); RED BLOOD CELL COUNT(AUTO) 4.52 MIL/uL (4.2-6.2); WHITE BLOOD COUNT (AUTO) 8.5 K/uL (4.8-10.8)
[2024-07-12 07:00] LABS: CALCIUM 8.8 mg/dL (8.4-11.0); CREATININE 0.83 mg/dL (0.55-1.30); POTASSIUM 4.1 mmol/L (3.5-5.1)
[2024-07-12 08:31] VITALS: BP_SYST 108; PULSE 99; RESP 16; TEMP 97.7; O2SAT 96
[2024-07-12] MEDS ORDERED: SACU1TAB PO (10:06)
[2024-07-12] MEDS ORDERED: METO-306 PO (10:06)
[2024-07-12] MEDS ORDERED: DIGO250T PO (10:06)
[2024-07-12] MEDS ORDERED: APIX2.5T PO (10:06)
[2024-07-12 10:30] VITALS: O2SAT 96
[2024-07-12] MEDS: METOPROLOL SUCCINATE 50 MG TAB.SR.24H (TOPROL XL) PO SCH (10:53)
[2024-07-12] MEDS: APIXABAN 2.5 MG TABLET PO SCH (10:55)
[2024-07-12] MEDS: CYCLOBENZAPRINE HCL 10 MG TABLET (FLEXERIL) PO PRN (10:56)
[2024-07-12 11:31] VITALS: BP_SYST 116; PULSE 62; RESP 16; TEMP 97.6; O2SAT 96
[2024-07-12 12:06] VITALS: BP_SYST 111; PULSE 58; RESP 18; TEMP 97.8; O2SAT 95
[2024-07-17] MEDS ORDERED: APIXABAN 2.5 MG TABLET PO SCH (09:00)
== END 2024-07-12 14:45 | disposition home or self-care (01) | DRG 175 ==
LOC: SED 10:23 → SIC 14:41 → STU 07-10 18:00 → SMU 07-11 23:52
PROVIDERS: ADMIT Preventive Medicine Preventive Medicine/Occupational Environmental Medicine; ATTEND Preventive Medicine Preventive Medicine/Occupational Environmental Medicine
DX: I26.99 Other pulmonary embolism without acute cor pulmonale (principal); J96.01 Acute respiratory failure with hypoxia; I82.441 Acute embolism and thrombosis of right tibial vein; I42.9 Cardiomyopathy, unspecified; I82.431 Acute embolism and thrombosis of right popliteal vein; I82.411 Acute embolism and thrombosis of right femoral vein; I48.91 Unspecified atrial fibrillation; K80.20 Calculus of gallbladder without cholecystitis without obstruction; I10 Essential (primary) hypertension; E66.9 Obesity, unspecified; G89.29 Other chronic pain; M54.9 Dorsalgia, unspecified; E88.09 Other disorders of plasma-protein metabolism, not elsewhere classified; Z79.01 Long term (current) use of anticoagulants; Z87.442 Personal history of urinary calculi; Z79.899 Other long term (current) drug therapy; Z68.33 Body mass index [BMI] 33.0-33.9, adult
CPT/HCPCS: 36415; 71045; 71275; 80048; 80053; 80307; 83690; 83735; 83880; 84484; 85025; 85610; 85730; 87081; 93005; 93306; 93970; 99291; G0378; J1160; J1644; J1650; J2270; J2405; J2470; J3490